=== PATIENT | male | born 1960 ===

== ENCOUNTER 2021-01-19 08:47 | Day surgery (SDC) | payer BC ==
[~2021-01-19] VITALS: Ht 185.4 cm; Wt 121.6 kg
[2021-01-19 09:10] VITALS: BP 172/88
[2021-01-19] MEDS ORDERED: CHLO25TA PO (09:31)
[2021-01-19] MEDS ORDERED: TAMS-14 PO (09:31)
[2021-01-19] MEDS ORDERED: FEBU80TA2 PO (09:31)
[2021-01-19] MEDS ORDERED: LOSA100T14 PO (09:31)
[2021-01-19] MEDS ORDERED: ROSU5TAB PO (09:31)
[2021-01-19] MEDS ORDERED: PANT40TA3 PO (09:31)
[2021-01-19] MEDS ORDERED: KRIL1CAP21 PO (09:31)
[2021-01-19] MEDS ORDERED: ASPI-667 PO (09:31)
[2021-01-19] MEDS ORDERED: UBID10CA5 PO (09:32)
[2021-01-19] MEDS ORDERED: DEPO-MEDROL ONE (11:08)
[2021-01-19] MEDS ORDERED: SENSORCAINE-MPF 0.25% VIAL ONE (11:08)
[2021-01-19] MEDS ORDERED: SUBLIMAZE ONE (11:12)
[2021-01-19] MEDS ORDERED: VERSED ONE (11:14)
[2021-01-19 11:21] VITALS: BP 153/95
--- NOTE | 2021-01-19 11:21 | PRM.OPH ---
OPERATIVE REPORT OPERATIVE REPORT DATE OF SERVICE: 01/19/2021 CHIEF COMPLAINT: Leg pain PRE-OPERATIVE DIAGNOSIS: Radiculopathy, Lumbar, M54.16 POST-OPERATIVE DIAGNOSIS: Radiculopathy, Lumbar, M54.16 PROCEDURE PERFORMED: Lumbar epidural steroid injection, CPT 04389, J1040 DESCRIPTION: After explaining the risks, benefits, and complications to the epidural steriod injection, the patient was placed in the prone position. The procedure was conducted under fluoroscopic guidance. The procedure was also conducted under monitored anesthesia care. Per aseptic technique, prepped back with chlorhexidin e. Wiped and draped the back. Using an 18-gauge Tuohy needle at the right paramedian L4-L5 vertebral level, noted loss of resistance at 7 cm. Negative CSF, negative paresthesia, and negative blood noted. Injected 2 cc of Omnipaque 180 was injected to confirm the needle was in the Epidural space and there was not intravascular or interspinal flow. Injected 80mg of Depomedrol diluted in 2 cc of 0.25% Marcaine and 2 cc normal saline. Needle was removed in tact. Total Fluoroscopy time 11 seconds. The patient tolerated the procedure well. Patient was taken back to pre-op room and monitored for 15 minutes with no complications. The patient was then discharged to home in satisfactory condition. MATT CARROLL MD Jan 19, 2021 11:21
[2021-01-19 11:50] VITALS: BP 153/76
== END 2021-01-19 11:53 | disposition home or self-care (01) ==
LOC: SDC 08:47
PROVIDERS: ATTEND Anesthesiology
DX: M54.16 Radiculopathy, lumbar region (principal); M54.12 Radiculopathy, cervical region; G89.4 Chronic pain syndrome; I10 Essential (primary) hypertension; M96.1 Postlaminectomy syndrome, not elsewhere classified; Z79.82 Long term (current) use of aspirin; Z79.899 Other long term (current) drug therapy; Y83.8 Other surgical procedures as the cause of abnormal reaction of the patient, or of later complication, without mention of misadventure at the time of the procedure
CPT/HCPCS: 62323; J2250; J3010; J3490; Q9965; 77003; J1030

== ENCOUNTER 2021-02-09 08:26 | Day surgery (SDC) | payer BC ==
[~2021-02-09] VITALS: Ht 185.4 cm; Wt 121.6 kg
[~2021-02-09 08:26] MED LIST: ASPI-667 PO; CHLO25TA PO; FEBU80TA2 PO; KRIL1CAP21 PO; LOSA100T14 PO; PANT40TA3 PO; ROSU5TAB PO; TAMS-14 PO; UBID10CA5 PO
[2021-02-09 08:45] VITALS: BP 145/87
[2021-02-09] MEDS ORDERED: SENSORCAINE-MPF 0.25% VIAL ONE (11:50)
[2021-02-09] MEDS ORDERED: DEPO-MEDROL ONE (11:50)
--- NOTE | 2021-02-09 11:50 | PRM.OPH ---
OPERATIVE REPORT OPERATIVE REPORT DATE OF SERVICE: 02/09/2021 CHIEF COMPLAINT: Leg pain PRE-OPERATIVE DIAGNOSIS: Radiculopathy, Lumbar, M54.16 POST-OPERATIVE DIAGNOSIS: Radiculopathy, Lumbar, M54.16 PROCEDURE PERFORMED: Lumbar epidural steroid injection, CPT 25407, J1040 DESCRIPTION: After explaining the risks, benefits, and complications to the epidural steriod injection, the patient was placed in the prone position. The procedure was conducted under fluoroscopic guidance. The procedure was also conducted under monitored anesthesia care. Per aseptic technique, prepped back with chlorhexidin e. Wiped and draped the back. Using an 18-gauge Tuohy needle at the right paramedian L5-S1 vertebral level, noted loss of resistance at 7 cm. Negative CSF, negative paresthesia, and negative blood noted. Injected 2 cc of Omnipaque 180 was injected to confirm the needle was in the Epidural space and there was not intravascular or interspinal flow. Injected 80mg of Depomedrol diluted in 2 cc of 0.25% Marcaine and 2 cc normal saline. Needle was removed in tact. Total Fluoroscopy time [] seconds. The patient tolerated the procedure well. Patient was taken back to pre-op room and monitored for 15 minutes with no complications. The patient was then discharged to home in satisfactory condition. MATT CARROLL MD February 09, 2021 11:50
[2021-02-09] MEDS ORDERED: SUBLIMAZE ONE (11:56)
[2021-02-09] MEDS ORDERED: VERSED ONE (11:56)
[2021-02-09 12:07] VITALS: BP 121/70
[2021-02-09 12:17] VITALS: BP 136/79
[2021-02-09 12:27] VITALS: BP 124/70
== END 2021-02-09 12:38 | disposition home or self-care (01) ==
LOC: SDC 08:26
PROVIDERS: ATTEND Anesthesiology
DX: M54.16 Radiculopathy, lumbar region (principal); M54.12 Radiculopathy, cervical region; I10 Essential (primary) hypertension; G47.30 Sleep apnea, unspecified; G89.4 Chronic pain syndrome; E66.9 Obesity, unspecified; Z68.35 Body mass index [BMI] 35.0-35.9, adult; Z88.1 Allergy status to other antibiotic agents; Z88.2 Allergy status to sulfonamides; Z98.890 Other specified postprocedural states; Z79.899 Other long term (current) drug therapy; Z79.82 Long term (current) use of aspirin; Z90.49 Acquired absence of other specified parts of digestive tract
CPT/HCPCS: 62323; J2250; J3010; J3490; Q9965; 77003; J1030

== ENCOUNTER → 2021-02-28 | Outpatient (CLI) | payer BC ==
--- NOTE | 2021-02-28 11:46 | DIREP ---
PROCEDURE:MRI SPINE LUMBAR W/O COMPARISON:None. INDICATIONS:M54.16 RADICULOPATHY LUMBAR REGION TECHNIQUE:A comprehensive examination was performed utilizing a variety of imaging planes and imaging parameters to optimize visualization of suspected pathology. Images were performed without intravenous gadolinium contrast. FINDINGS: ALIGNMENT:Minimal dextroscoliosis of the L-spine. VERTEBRA:No fracture, pars defect, or osseous lesion. CORD/CAUDA EQUINA:Normal size, contour, and signal intensity. PARASPINAL AREA:Normal with no visible mass. OTHER:None. LUMBAR DISC LEVELS T12-L1:Minimal posterior disc bulge. L1-L2:Mild generalized posterior disc bulge with superimposed small left central disc-osteophyte protrusion/herniation. Left nerve root displacement, mild left foraminal stenosis. L2-L3:Posterior disc bulge, superimposed right central/subarticular and right foraminal disc protrusion/herniation, small left foraminal disc protrusion/herniation. Moderate bilateral foraminal stenosis, mild right nerve root displacement, mild central canal spinal stenosis.. L3-L4:Mild posterior disc bulge, ligamentous hypertrophy. Moderate bilateral foraminal stenosis, mild central canal spinal stenosis. L4-L5:Mild generalized posterior bulge, superimposed small bilateral foraminal disc protrusions/herniations, ligamentous hypertrophy, bilateral facet arthropathy. Marked bilateral foraminal stenosis, mild central canal spinal stenosis. L5-S1:Marked disc space narrowing, mild generalized posterior disc bulge, superimposed left foraminal disc protrusion/herniation and right foraminal disc extrusion/herniation, bilateral facet arthropathy. Marked bilateral foraminal stenosis. The right foraminal disc extrusion has a small disc migration component along the right posterior lateral aspect of the superior S1 endplate. This migrated component measures approximately 5 x 10 by 10 mm (AP by transverse by superior inferior diameter, respectively). This may cause right nerve root displacement. CONCLUSION: 1. Multilevel degenerative disc and joint changes of the lumbar spine with no evidence of acute bony injury. 2. There are findings of mild acquired central canal spinal stenosis at the L2-3 through L4-5 levels. 3. At L2-3 and L5-S1, there are findings suggestive of right nerve root displacement. 4. There are varying degrees of neural foraminal stenosis in the lumbar spine. Please see above for details. Dictated by: Jim Traylor M.D. on 02/28/2021 at 11:29 AM
== END | disposition home or self-care (01) ==
LOC: RAD 08:13
PROVIDERS: ATTEND Anesthesiology
DX: M51.17 Intervertebral disc disorders with radiculopathy, lumbosacral region (principal); M48.07 Spinal stenosis, lumbosacral region; M47.27 Other spondylosis with radiculopathy, lumbosacral region
CPT/HCPCS: 72148

== ENCOUNTER → 2021-03-16 | Day surgery (SDC) | payer BC ==
[~2021-03-16] VITALS: Ht 185.4 cm; Wt 121.6 kg
[~2021-03-16] MED LIST changes: +DEPO-MEDROL ONE; +SENSORCAINE-MPF 0.25% VIAL ONE; +SUBLIMAZE ONE; +VERSED ONE
[2021-03-16 07:15] VITALS: BP 123/77
[2021-03-16 09:11] VITALS: BP 149/85
--- NOTE | 2021-03-16 09:12 | PRM.OPH ---
OPERATIVE REPORT OPERATIVE REPORT DATE OF SERVICE: 03/16/2020 CHIEF COMPLAINT: Leg pain PRE-OPERATIVE DIAGNOSIS: Radiculopathy, Lumbar, M54.16 POST-OPERATIVE DIAGNOSIS: Radiculopathy, Lumbar, M54.16 PROCEDURE PERFORMED: Lumbar epidural steroid injection, CPT 05862, J1040 DESCRIPTION: After explaining the risks, benefits, and complications to the epidural steriod injection, the patient was placed in the prone position. The procedure was conducted under fluoroscopic guidance. The procedure was also conducted under monitored anesthesia care. Per aseptic technique, prepped back with chlorhexidin e. Wiped and draped the back. Using an 18-gauge Tuohy needle at the right paramedian L4-L5 vertebral level, noted loss of resistance at 7 cm. Negative CSF, negative paresthesia, and negative blood noted. Injected 2 cc of Omnipaque 180 was injected to confirm the needle was in the Epidural space and there was not intravascular or interspinal flow. Injected 80mg of Depomedrol diluted in 2 cc of 0.25% Marcaine and 2 cc normal saline. Needle was removed in tact. Total Fluoroscopy time 10 seconds. The patient tolerated the procedure well. Patient was taken back to pre-op room and monitored for 15 minutes with no complications. The patient was then discharged to home in satisfactory condition. MATT CARROLL MD Mar 16, 2021 09:12
[2021-03-16 09:26] VITALS: BP 124/78
[2021-03-16 09:45] VITALS: BP 127/78
== END | disposition home or self-care (01) ==
LOC: SDC 07:07
PROVIDERS: ATTEND Anesthesiology
DX: M51.16 Intervertebral disc disorders with radiculopathy, lumbar region (principal); G89.4 Chronic pain syndrome; M96.1 Postlaminectomy syndrome, not elsewhere classified; Z79.82 Long term (current) use of aspirin; Z79.899 Other long term (current) drug therapy; Y83.8 Other surgical procedures as the cause of abnormal reaction of the patient, or of later complication, without mention of misadventure at the time of the procedure
CPT/HCPCS: 62323; J2250; J3010; J3490; Q9965; 77003